=== PATIENT | female | born 1955 | race Caucasian/White ===

== ENCOUNTER → 2017-05-23 | Outpatient (CLI) | payer OTHER ==
[~2017-05-23] MED LIST: AUGMENTIN 875875 MG PO; CARDIZEM CD180 MG PO; CELEXA20 MG PO; CIPROFLOXACIN500 M1 PO; COREG6.25 MG PO; FLAGYL500 MG PO; GLYBURIDE 2.52.5 M1 PO; LISINOPRIL20 MG PO; LOVASTATIN 20 M20 MG PO; METFORMIN HCL500 MG PO; NORCO 5-325 TA1 EACH PO; PREDNISONE 10 M10 MG PO; PROPAFENONE 15150 MG PO; PROTONIX40 M1 PO; ZESTORETIC 20-1 EAC3 PO; ZOFRAN ODT4 MG SUBLING; ZPAK PO
== END ==
LOC: M.RAD 13:08
DX: J44.1 Chronic obstructive pulmonary disease with (acute) exacerbation (principal)